=== PATIENT | male | born 1930 | race Caucasian/White ===

== ENCOUNTER → 2018-03-10 | Day surgery (SDC) | payer MEDICARE ==
[~2018-03-10] VITALS: Ht 176.8 cm; Wt 71.5 kg
[~2018-03-10] MED LIST: ACETAMINOPHEN 1000 MG/100 ML 0 ML IV ONE; ALLO300T2 PO; APIX2.5T PO; CHLORHEXIDINE GLUCONATE 2 % 1 PACK (2 CLOTHS) TOPICAL PRN; DEXAMETHASONE SOD PHOS 4 MG/ML VIAL IV ONE; DO NOT ADM ANY ANTICOAGULANT DRUGS PRN; INSULIN HUMAN REGULAR 1,000 UNITS/10 ML VIAL SQ PRN; KETAMINE HCL 500 MG/5 ML VIAL ONE; LACTATED RINGER'S 1000 ML INJ 1,000 ML IV ONE; LACTATED RINGER'S 1000 ML IV PRN; LEVO.15 PO; LIDOCAINE 1%/EPINEPHrine 1:100,000 SOLN 20 ML VIAL ONE; LIDOCAINE HCL 1% PF 5 ML SYRINGE OTHER ONE; LIPI40TA PO; METO25TA3 PO; METOPROLOL TARTRATE 25 MG TAB PO PRN; MULTTAB67 PO; ONDANSETRON HCL 4 MG/2 ML VIAL IV ONE; PHENYLEPH/NS 1000 MCG/10 ML SYR IV ONE; PLAV75TA29 PO; POVIDONE IODINE 5% (ANTISEPSIS KIT) 4 APPLICATIONS EACH NARE PRN; PROPOFOL 200 MG/20 ML AMP IV ONE; SODI650T PO; SODIUM CHLORID 0.9% 500 ML IV PRN; ceFAZolin 2 GM PREMIX 50 ML ONE; ceFAZolin 2 GM in NS 100 ML IV SCH; ePHEDrine/NS 25 MG/5 ML SYRINGE IV ONE
[2018-03-10 08:41] LABS: AUTOMATED NEUTROPHIL # 11.2 TH/MM3 (1.8-7.7); BASOPHIL # 0.2 TH/MM3 (0-0.2); EOSINOPHIL # 0.7 TH/MM3 (0-0.4); EOSINOPHIL % 4.1 % (0.0-4.0); HEMATOCRIT 44.2 % (39.0-51.0); HEMOGLOBIN 13.5 GM/DL (13.0-17.0); LYMPH % 12.7 % (9.0-44.0); LYMPHOCYTE # 2.1 TH/MM3 (1.0-4.8); MEAN CELL VOLUME 68.4 FL (80.0-100.0); MEAN CORPUSCULAR HEMOGLOBIN 20.9 PG (27.0-34.0); MEAN CORPUSCULAR HGB CONC 30.5 % (32.0-36.0); MEAN PLATELET VOLUME 9.5 FL (7.0-11.0); MONO % 14.4 % (0.0-8.0); MONOCYTE # 2.4 TH/MM3 (0-0.9); NEUT % 67.8 % (16.0-70.0); PLATELET COUNT 654 TH/MM3 (150-450); RED BLOOD COUNT 6.47 MIL/MM3 (4.50-5.90); RED CELL DISTRIBUTION WIDTH 18.9 % (11.6-17.2); WHITE BLOOD COUNT 16.6 TH/MM3 (4.0-11.0)
[2018-03-10 08:46] LABS: INTERNATIONAL NORMALIZED RATIO 1.3 RATIO; PROTHROMBIN TIME - PATIENT 13.1 SEC (9.8-11.6)
[2018-03-10 09:04] LABS: BICARBONATE 21.3 MEQ/L (21.0-32.0); CALCIUM 8.8 MG/DL (8.5-10.1); CREATININE 2.37 MG/DL (0.60-1.30)
[2018-03-10 09:37] LABS: BANDS 15 % (0-6); BASOPHILS 1 % (0-2); LYMPHOCYTES 17 % (9-44); MONOCYTES 14 % (0-8); MYELOCYTES 1 % (0-0); POLYS (SEG NEUTROPHILS) 50 % (16-70)
[2018-03-10 09:38] LABS: ACANTHOCYTES 1+ (NORMAL); OVALOCYTES 2+ (NORMAL)
--- NOTE | 2018-03-10 12:07 | MP ---
cc: Kalin Gonzales MD DATE OF OPERATION: 03/10/2018 PREOPERATIVE DIAGNOSIS: 1. Left cervical level 5 mass highly suspicious for metastatic squamous cell carcinoma. 2. 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 'POSTOPERATIVE DIAGNOSIS: 1. Left cervical level 5 mass, highly suspicious for metastatic squamous cell carcinoma. 2. 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 PROCEDURE PERFORMED: 1. Excision of 3 cm level 5 left cervical mass. 2. Placement of radiologic markers for planned postoperative radiation. ATTENDING SURGEON: Kalin Gonzales MD. MEDICAL BILLING SERVICE: Staff. ANESTHESIA: General and local anesthetic. COMPLICATIONS: None. FINDINGS: A 3 cm well defined mass consistent with metastatic squamous cell carcinoma almost completely intramuscular from the proximal sternocleidomastoid just proximal to the insertion at the mastoid process. No other major structures involved. No other suspicious lymphadenopathy level V. 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 The patient developed a palpable left level 5 cervical lymph node suspicious for metastatic carcinoma. The patient was recommended to undergo radiation; however, due to the large size of this metastasis, this is concerning that radiation would not gain adequate local control. Dissection of the jamar basin or at least debulking of this lesion was indicated for local regional control. Risks, benefits, and alternatives to surgery including resection of the mass, as well as a selective dissection were discussed with the patient and his prior to the procedure. The patient has been on Plavix and Eliquis and these were held, according to the patient's ems educator preoperatively. PROCEDURE: The patient was taken to the operating room , placed in the supine position and placed under anesthesia with an LMA airway. The patient's left posterior neck and face were shaved, prepped and draped in a sterile fashion. Time-out was performed. Local anesthetic was instilled over the area of the palpable mass at the proximal level 5 cervical jamar basin. An approximately 4 cm incision was made vertically over the area of the mass to the posterior edge of the SCM. I used the Bovie electrocautery to dissect the subcutaneous tissue and open platysmal flaps. We were able to use a hemostat, as well as right angle dissection to dissect around the mass. Approximately 75% of the width of the SCM was involved in this mass and the majority of the dissection was involved with dividing SCM fibers proximal and distal to the mass. There was no involvement in any major vascular or neurologic structures of the neck and this may have come from a level 5 lymph node as the only space that this was involved in was to level V. We used careful dissection and the spinal accessory nerve was actually not visualized as the full compartment was not dissected. The mass was 3 cm grossly upon removal and was passed off for permanent processing. We had excellent hemostasis. We did place some Hemoclips in the space at the resection margins. We irrigated out until all succinate was clear. We placed Surgicel at the muscle edges to assist with hemostasis. We closed the platysma with interrupted 3-0. We closed the skin with 4-0 Monocryl and Dermabond. At this point in time, the patient was discontinued from anesthesia and taken to the PACU in stable condition. The patient tolerated the procedure well with no apparent complications. All counts were correct and I was present and scrubbed for the entire procedure. Kalin Gonzales MD AWG/DL , 11:31 AM , 12:06 PM
[2018-03-10 12:49] VITALS: BP 165/86; PULSE 80; RESP 16; TEMP 97.4; O2SAT 96
--- NOTE | 2018-03-11 11:47 | EKG ---
Date Performed: 03/10/2018 Time Performed: 08:30:07 PTAGE: 87 years EKG: Sinus rhythm WITH FIRST DEGREE AV BLOCK WITH OCCASIONAL SUPRAVENTRICULAR PREMATURE COMPLEXES INFERIOR MYOCARDIAL INFARCTION , PROBABLY OLD ABNORMAL ECG NO PREVIOUS TRACING DOCTOR: Jarrett Lundberg Interpretating Date/Time 03/11/2018 11:44:23
== END | disposition home or self-care (01) ==
LOC: HSDC 07:32
PROVIDERS: ATTEND Surgery
DX: C77.0 Secondary and unspecified malignant neoplasm of lymph nodes of head, face and neck (principal); C44.229 Squamous cell carcinoma of skin of left ear and external auricular canal; R59.0 Localized enlarged lymph nodes; E03.9 Hypothyroidism, unspecified; I10 Essential (primary) hypertension; I25.10 Atherosclerotic heart disease of native coronary artery without angina pectoris; Z98.61 Coronary angioplasty status; Z79.01 Long term (current) use of anticoagulants; Z72.0 Tobacco use
CPT/HCPCS: 00320; 10035; 38510; 80048; 85007; 85027; 85610; 88307; 93005; J0690; J1100; J2370; J2405; J3010; J7120; 88305; J0131